=== PATIENT | female | born 1950 | race Caucasian/White ===

== ENCOUNTER 2023-11-26 05:46 | Day surgery (SDC) | payer OTHER, SELFPAY ==
[2023-11-12 12:41] VITALS: BMI 25.3
[2023-11-12 13:26] LABS: % Basophils 0.7 % (0-2); % Eosinophils 0.9 % (0-6); % Immature Granulocytes 0.3 % (0-0.5); % Lymphocytes 35.5 % (20.5-51.1); % Monocytes 7.7 % (1.7-9.3); % Neutrophils 54.9 % (42.2-75.2); Absolute Basophils 0.1 10^3/uL (0-0.2); Absolute Eosinophils 0.1 10^3/uL (0-0.7); Absolute Lymphocytes 2.4 10^3/uL (1.2-3.4); Absolute Monocytes 0.5 10^3/uL (0.1-0.6); Absolute Neutrophils 3.7 10^3/uL (1.4-6.5); Hematocrit 40.4 % (37.0-47.0); Hemoglobin 13.3 g/dL (12.0-16.0); Mean Corp Hgb Conc. 32.9 g/dL (33.0-37.0); Mean Corpuscular Hgb 30.9 pg (27.0-31.0); Mean Corpuscular Volume 93.7 fL (81.0-99.0); Mean Platelet Volume 10.6 fL (7.4-10.4); Nucleated Red Blood Cells % 0 %; Platelet Count 297 10^3/uL (130-400); Red Blood Cell Count 4.31 10^6/uL (4.20-5.40); Red Cell Dist. Width 13.2 % (11.5-14.5); White Blood Cell Count 6.8 10^3/uL (4.8-10.8)
[2023-11-12 13:35] LABS: INR 1.03; PT 13.3 Sec (11.4-14.6)
[2023-11-12 13:38] LABS: Albumin 4.7 g/dl (3.5-5.0); Alkaline Phosphatase 56 U/L (38-126); Blood Urea Nitrogen 17 mg/dl (7-17); Calcium 9.9 mg/dl (8.4-10.2); Carbon Dioxide 29 mmol/L (22-30); Chloride 103 mmol/L (98-107); Estimated Creatinine Clearance 66 ml/min; Glucose 92 mg/dl (70-99); Potassium 5.3 mmol/L (3.5-5.1); Sodium 139 mmol/L (135-145); Total Protein 7.1 g/dl (6.3-8.2); eGFR > 60.00
[2023-11-12 13:39] LABS: ALT (SGPT) 16 U/L (0-35); AST (SGOT) 19 U/L (14-36); Magnesium 2.1 mg/dl (1.6-2.3)
[2023-11-26] VITALS (12 sets, daily range): BP systolic 101–142; BP diastolic 48–114
--- NOTE | 2023-11-26 07:51 | ITS.CL.ABL ---
[facility] - Ablation
Ablation
Procedure Report:
Primary Referral And Information Aide: Aquiles Villalpando MD
Procedure Date: 11/26/2023
Patient History:
Patient is a pleasant 73-year-old female with past medical history significant for mixed dyslipidemia, sick sinus syndrome, atherosclerotic heart disease without angina noted on CT scan, BPPV, and symptomatic persistent atrial fibrillation.
See H&P for complete details.
Indication:
Symptomatic persistent atrial fibrillation
Early recurrence following cardioversion
Arrhythmia Specific History:
Prior Medical Therapies for Rate and Rhythm Control:
X Beta-lisha
[ ] Calcium channel-lisha
[ ] Amiodarone
[ ] Dronederone
[ ] Sotalol
[ ] Flecainide
[ ] Dofetilide
X Options limited by bradycardia
[ ] Options limited by comorbid renal disease
Prior Procedural Therapies for AF/AFL:
X Cardioversion
[ ] Pulmonary Vein Isolation
[ ] Posterior Wall Isolation
[ ] Additional lines (Specify)
[ ] Surgical Nunez-MAZE or PVI (Specify)
Procedure Performed:
X AF ablation procedure (39722) -- includes LA/CS pacing, trans-septal, 3D mapping, + ICE
[ ] +IV drug (48121)
[ ] +Other Arrhythmia (18524)
X +Other AF Line/ablation (50573) -- Posterior wall isolation
Risks and expected recovery has been explained in detail. Alternative options have been explored, and in a shared-decision making fashion we have decided that this was the most appropriate procedure.
Method
NPO status confirmed. Grounding pad applied. Defibrillator pads applied. Continuous surface ECG, pulse oximetry, and blood pressure were monitored. Procedure was performed under general anesthesia, with anesthesia services.
Both groins were clipped, prepped with Chloraprep, and draped in sterile fashion. Time out was called. Local anesthesia administered with bupivacaine. The right and left femoral veins were accessed for catheter placement, using ultrasound guidance,
micro-puncture needle/wire, and modified seldinger technique. 3 sheaths were placed. The following catheters were used:
[ ] Tacticath SE (D/F Curve) ablation catheter
X Viewflex 9Fr ICE catheter
X Inquiry decapolar 6Fr diagnostic catheter
[ ] CRD Hex 6Fr
[ ] Arctic Front Advance Cryoballoon ([ ]28mm[ ]23mm)
[ ] Achieve Advance mapping catheter ([ ]15mm[ ]20mm)
X FlexCath Contour 10 Fr with PulseSelect PFA Catheter
X Advisor HD Grid Mapping Catheter, SE
[ ] AcusSpaceFace AcuNav 8 Fr ICE catheter
[ ]Other: [ ]
Intracardiac ultrasound (ICE) was carefully advanced into the right atrium to guide sheath placement over a J-wire, catheter placement, guide trans-septal puncture, identify potential complications, identify anatomic structures and ensure proper
contact between ablation catheter and tissue.
Heparin was given prior to trans-septal puncture. Heparin was given to achieve and maintain a target ACT of 300-400 seconds throughout the procedure.
Trans-septal access was performed under ICE guidance. The trans-septal puncture was performed with a SafeSept wire through a Brockenbrough needle assembly through the steerable sheath. The wire was visualized as it entered the LSPV and system
advanced under ICE guidance and fluoroscopy into the LA. The Brockenbrough needle assembly, SafeSept wire and sheath dilator were removed under negative pressure. LA pressure was measured and recorded.
ICE and 3D mapping was performed to identify relevant cardiac structures. A careful 3D map was created to assess for regions of low-voltage and abnormal electrogram signals using HD grid mapping catheter and PulseSelect catheter. Additional mapping
was performed as outlined below.
Prior to ablation, glycopyrrolate was provided. PulseSelect catheter was advanced over J-wire to the ostium of each vein. Pulmonary vein isolation was performed with ostial and antral lesions in a circumferential manner. Contact was visualized via
EAM, ICE, fluoroscopy, and EGM signals. Posterior wall isolation was performed by anchoring the J-wire within the pulmonary vein and placing the PulseSelect catheter in contact with the posterior wall as visualized by aforementioned methods.
Following completion of ablation lesions, sinus rhythm was restored with a 200J synchronized DCCV and a post-ablation voltage/activation map was performed in sinus rhythm and atrial pacing. Entrance and exit block were confirmed for each vein and
the posterior wall.
Catheter and sheath were removed from the left atrium and post-ablation intracardiac echo evaluation was consistent with pre-ablation with no changes and no pericardial effusion and there is no left atrial thrombus or left ventricle thrombus seen.
Electrophysiology study was performed. Hemostasis was obtained with figure of 8 stitch for each groin and with manual pressure. Protamine was used for reversal.
Estimated Blood Loss
5 mL
Complications
None
Fluoroscopy: 2.8 minutes; 4.8 mGy; DAP 0.6
Baseline Intervals:
Rhythm: AF
QRS: 69 ms
Post-Procedure Intervals:
CT: 145 ms
QRS: 70 ms
QT: 448 ms
QTc: 404 ms
A-A: 1230 ms
R-R: 1230 ms
AVWB: 390 ms
AVNERP: 600/370 ms
Recommendations
- Bedrest with straight-leg precautions as ordered
- Anticipate same day discharge if patient meeting clinical metrics
- Resume home medications as indicated
- Ok to resume anticoagulation tonight if patient and groin sites stable
- PPI daily for 30 days
- Plan for follow-up in office with Dr. Villalpando
Garth Masters DO
Clinical Cardiac [facility]
cc: Aquiles Villalpando MD; Neeta MOSS
[2023-11-26 08:43] LABS: ACT-LR - POC 252 Seconds (116-155)
[2023-11-26 08:59] LABS: ACT-LR - POC 290 Seconds (116-155)
[2023-11-26 09:23] LABS: ACT-LR - POC 331 Seconds (116-155)
[2023-11-26 09:52] LABS: ACT-LR - POC 187 Seconds (116-155)
[2023-11-26] MEDS: ANESTHETIC LOZENGE 1 LOZENGE PO (13:27)
--- NOTE | 2023-11-26 14:58 | W.PN.UPDATE ---
Update Note
Progress Note Update
Pt seen post PFA. Right groin site without ht/bleeding, non tender. OOB ambulating. Post EKG SB/SR 50-60s, no acute changes. Resume eliquis tonight. Followup at [facility] arranged. Home today if groin site/tele remain stable.
--- NOTE | 2023-11-30 10:43 | PTCARENOTE ---
Pt called the labor delivery specialist recovery desk and claimed that Dr. Villalpando's office directed her to do so. Pt c/o feeling lightheaded and faint. She asked for Dr. Masters, who is not here today. I told the pt that if she feels poorly, she should go to the ER
to be evaluated and to call her striper back to tell them. Pt also given the main number to Dr. Masters's office. TT sent to Dr. Masters, informing him of everything above. Courtney Meza NP notified as well.
== END 2023-11-26 15:14 | disposition home or self-care (01) ==
LOC: CATH 05:46
PROVIDERS: ATTENDING PHYSICIAN Internal Medicine Cardiovascular Disease; FAMILY PHYSICIAN Nurse Practitioner; OTHER PHYSICIAN Internal Medicine Cardiovascular Disease
DX: I48.19 Other persistent atrial fibrillation (principal); Z79.01 Long term (current) use of anticoagulants; I49.5 Sick sinus syndrome; I25.10 Atherosclerotic heart disease of native coronary artery without angina pectoris; I10 Essential (primary) hypertension; E78.2 Mixed hyperlipidemia; F41.9 Anxiety disorder, unspecified; J47.9 Bronchiectasis, uncomplicated; G47.00 Insomnia, unspecified; Z88.5 Allergy status to narcotic agent; Z88.4 Allergy status to anesthetic agent; J98.4 Other disorders of lung; R42 Dizziness and giddiness
CPT/HCPCS: C1732; C1733; C1769; C1894; C1766; 36415; 75572; 76937; 80053; 83735; 85025; 85347; 85610; 86850; 86900; 86901; 92929; 93005; 93656; 93657; Q9967